=== PATIENT | male | born 1980 | race Two or more races ===

== ENCOUNTER 2021-05-02 12:04 | Emergency (ER) | payer SELFPAY ==
[~2021-05-02] VITALS: Ht 160 cm; Wt 60.0 kg
[2021-05-02 14:32] VITALS: BP 122/79
--- NOTE | 2021-05-02 14:47 | PHYS DOC ---
Past Medical History Past Surgical History: No Surgical History General Adult EDM: Chief Complaint: HEADACHE HPI: HPI: Patient is a 41 year old male without pertinent past medical history who presents with 1 year of lightheadedness/dizziness. States that when he first gets up in the morning and stands up he feels like he is going to pass out. The sensation continues throughout the day especially with changes in position. Sometimes feels like the room is spinning. Symptoms improved after he stays still. Was seen yesterday at a clinic at [facility], states he had a CT of his head that was normal. He was referred to a neurologist, but does not have an appointment for 1 month. He denies any headache, fever, chills. No chest pain or shortness of breath. He does feel like the left side of his face is slightly numb. Otherwise denies any extremity numbness or weakness. No ataxia or coordination difficulty. No vision changes. Has tried meclizine and prednisone in the past and neither have helped. Review of Systems: Review of Systems: Constitutional: Denies fever or chills. [] Eyes: Denies change in visual acuity. [] HENT: Denies nasal congestion or sore throat. [] Respiratory: Denies cough or shortness of breath. [] Cardiovascular: Denies chest pain or edema. [] GI: Denies abdominal pain, nausea, vomiting, bloody stools or diarrhea. [] : Denies dysuria. [] Musculoskeletal: Denies back pain or joint pain. [] Integument: Denies rash. [] Neurologic: Reports dizziness/lightheadedness. Denies headache, focal weakness or sensory changes. [] Endocrine: Denies polyuria or polydipsia. [] Lymphatic: Denies swollen glands. [] Psychiatric: Denies depression or anxiety. [] Heart Score: C/O Chest Pain: No Risk Factors: Risk Factors: DM, Current or recent (<one month) smoker, HTN, HLP, family history of CAD, obesity. Risk Scores: Score 0 - 3: 2.5% MACE over next 6 weeks - Discharge Home Score 4 - 6: 20.3% MACE over next 6 weeks - Admit for Clinical Observation Score 7 - 10: 72.7% MACE over next 6 weeks - Early Invasive Strategies Physical Exam: PE: Constitutional: Well developed, well nourished, no acute distress, non-toxic appearance. [] HENT: Normocephalic, atraumatic, bilateral external ears normal, oropharynx moist, no oral exudates, nose normal. [] Eyes: PERRLA, EOMI, conjunctiva normal, no discharge. [] Neck: Normal range of motion, no tenderness, supple, no stridor. [] Cardiovascular:Heart rate regular rhythm, no murmur [] Lungs & Thorax: Bilateral breath sounds clear to auscultation [] Abdomen: Bowel sounds normal, soft, no tenderness, no masses, no pulsatile masses. [] Skin: Warm, dry, no erythema, no rash. [] Back: No tenderness, no CVA tenderness. [] Extremities: No tenderness, no cyanosis, no clubbing, ROM intact, no edema. [] Neurologic: Alert, oriented to person, place, time. Face is symmetric. Speech is normal. Cranial nerves III-XII intact. 5/5 strength in bilateral upper and lower extremities in all dermatomes. No dysmetria with [id number] or [id number]-[id number] testing. Gait is stable. Psychologic: Affect normal, judgement normal, mood normal. [] Current Patient Data: Vital Signs: Vital Signs Date Time Temp Pulse Resp B/P (MAP) Pulse Ox O2 Delivery O2 Flow Rate FiO2 05/02/21 14:32 98.3 83 16 122/79 (93) 97 Room Air 98.3 EKG: EKG: [] Sinus rhythm. QTc 379. Normal QRS and GA interval. Normal axis. Does have inferior Q waves in lead III, upsloping ST segments anteriorly, potentially early repolarization. Radiology/Procedures: Radiology/Procedures: [] Course & Med Decision Making: Course & Med Decision Making Pertinent Labs and Imaging studies reviewed. (See chart for details) Patient 41-year-old male without pertinent past medical history presents with a year of orthostatic dizziness/lightheadedness. He has had a work-up in the past including blood work, and a recent CT scan of his head. He is neurologically intact without any evidence of ataxia, diplopia, dysphagia, dysarthria or other neurologic deficits. His dizziness is extinguishable, so doubt that this is central in nature. Unfortunately has not responded to meclizine or prednisone in the past. An EKG done here shows some inferior Q waves and early repolarization pattern anteriorly. We will check electrolytes, cell counts, and troponin here. Do not feel that repeat CT imaging is warranted. Do not feel he requires admission for MRI imaging at this time. He does have neurology follow-up for next month, which I feel is appropriate. I have asked him to call his PCP and continue to seek outpatient treatment. Dragon Disclaimer: Dragon Disclaimer: This electronic medical record was generated, in whole or in part, using a voice recognition dictation system. Departure Departure Impression: Primary Impression: Orthostatic dizziness Disposition: HOME / SELF CARE / HOMELESS Condition: STABLE Referrals: NO PCP (PCP) Additional Instructions: I am concerned you need to follow-up with your neurologist. Please keep your scheduled appointment. If you develop chest pain, shortness of breath, nausea/vomiting, coordination difficulty, double vision, speech difficulty, weakness or numbness in your arms or legs, or other new/concerning symptoms please return to the emergency department for reevaluation. Otherwise please follow-up with the neurologist and your primary care doctor. If you do not have a PCP, please call the number for the [facility] at [phone]. ANA ROBLES MD May 02, 2021 14:47
[2021-05-02 15:10] LABS: BASO % 1 % (0-3); EOS # 0.1 x10^3/uL (0.0-0.7); EOS % 3 % (0-3); HEMATOCRIT 43.5 % (39.0-53.0); LYMPH # 1.7 x10^3/uL (1.0-4.8); LYMPH % 29 % (24-48); MEAN CORPUSCULAR HEMOGLOBIN 30 pg (25-35); MEAN CORPUSCULAR HGB CONC 34 g/dL (31-37); MEAN CORPUSCULAR VOLUME 88 fL (79-100); MONO # 0.4 x10^3/uL (0.0-1.1); MONO % 7 % (0-9); NEUT # 3.6 x10^3/uL (1.8-7.7); NEUT % 61 % (31-73); PLATELET COUNT 212 x10^3/uL (140-400); RED BLOOD COUNT 4.93 x10^6/uL (4.30-5.70); RED CELL DISTRIBUTION WIDTH 12.9 % (11.5-14.5); WHITE BLOOD COUNT 5.9 x10^3/uL (4.0-11.0)
[2021-05-02 15:20] LABS: CALCIUM 8.7 mg/dL (8.5-10.1); CREATININE 0.7 mg/dL (0.7-1.3); GFR 124.3; POTASSIUM 4.2 mmol/L (3.5-5.1)
--- NOTE | 2021-05-03 09:34 | EKG ---
[facility] [address] [place] [address] Test Date: 2021-05-02 Test Time: 14:12:53 Pat Name: CHARMAINE BINGHAM Department: Room: Gender: M Digital Strategy Specialist: : [id number] Requested By: ANA ROBLES Order Number: [id number] Reading MD: Gage Hannon MD Measurements Intervals [place] Rate: 78 P: 31 HI: 148 QRS: 48 QRSD: 84 T: 13 QT: 330 QTc: 379 Interpretive Statements SINUS RHYTHM NON-SPECIFIC ST/T CHANGES Electronically Signed On 05-04-2021 11:00:06 CDT by Gage Hannon MD
== END 2021-05-02 16:19 | disposition home or self-care (01) ==
LOC: ER 12:04
DX: R42 Dizziness and giddiness (principal); R51.9 Headache, unspecified
CPT/HCPCS: 36415; 80048; 84484; 85025; 93005; 99284